=== PATIENT | female | born 1945 | race Caucasian/White ===

== ENCOUNTER 2020-01-14 16:14 | Inpatient (IN) | payer MEDICARE, OTHER ==
[~2020-01-14] VITALS: Ht 160 cm; Wt 91.0 kg
[~2020-01-14 16:14] MED LIST: ASPI81TA45 PO; ESTR42.53 VG; IBUP-1902 PO; LATA2.5D3 EACHEYE; LISI1TAB19 PO; METH500T97 PO; OMEP40CA42 PO; PENT100C2 PO; PRAV10TA2 PO; RANI150C PO; TRAZ50TA66 PO
[2020-01-14 17:26] LABS: ALBUMIN 2.8 g/dL (3.4-5.0); ANION GAP 9 mmol/L (5-15); CALCIUM 9.3 mg/dL (8.5-10.1); CHLORIDE 105 mmol/L (98-107); CREATININE 1.11 mg/dL (0.55-1.02)
--- NOTE | 2020-01-14 17:49 | NUR ---
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
[2020-01-14 17:55] LABS: BASOPHILS # (AUTO) 0.03 x10^3/uL (0-0.1); BASOPHILS % (AUTO) 0 % (0-1); EOSINOPHILS % (AUTO) 1 % (1-7); LYMPHOCYTES # (AUTO) 2.32 x10^3/uL (1-3.4); LYMPHOCYTES % (AUTO) 17 % (22-44); MD NO; MEAN CORPUSCULAR HEMOGLOBIN 31.3 pg (27.0-34.8); MEAN CORPUSCULAR HGB CONC 33.4 g/dL (32.4-35.8); MEAN CORPUSCULAR VOLUME 93.6 fL (80-100); MEAN PLATELET VOLUME 7.6 fL (7.4-10.4); MONOCYTES # (AUTO) 0.51 x10^3/uL (0.2-0.8); MONOCYTES % (AUTO) 4 % (2-9); NEUTROPHILS # (AUTO) 10.45 x10^3/uL (1.8-6.8); NEUTROPHILS % (AUTO) 78 % (42-75); PLATELET COUNT 408 x10^3/uL (130-400); RED BLOOD COUNT 4.31 x10^6/uL (3.82-5.3); RED CELL DISTRIBUTION WIDTH 14.9 % (9.6-15.2)
[2020-01-14] MEDS ORDERED: SODIUM CHLORIDE 0.9% 1,000 ML IV ONE (17:59)
[2020-01-14] MEDS ORDERED: ONDANSETRON 2MG/ML, 2ML IVPush ONE (18:00)
[2020-01-14] MEDS ORDERED: VANCOMYCIN PER PHARMACY MC ONE (18:00)
[2020-01-14] MEDS ORDERED: SODIUM CHLORIDE FLUSH 10ML SYR IVF ONE (18:00)
[2020-01-14] MEDS ORDERED: MORPHINE SULFATE 4 MG/ML, 1ML IVPush PRN (18:00)
[2020-01-14] MEDS ORDERED: AMPICILLIN/SULBACTAM 3 GM in SODIUM CHLORIDE 0.9% 100 ML IV ONE (18:30)
[2020-01-14] MEDS ORDERED: VANCOMYCIN 1,700 MG in SODIUM CHLORIDE 0.9% 250 ML IV ONE (19:00)
[2020-01-14] MEDS ORDERED: MORPHINE SULFATE 4 MG/ML, 1ML ONE (19:06)
[2020-01-14] MEDS ORDERED: ONDANSETRON 2MG/ML, 2ML ONE (19:06)
[2020-01-14 19:11] LABS: HCT (SEDRATE) 40.3 % (34.6-47.8)
--- NOTE | 2020-01-14 19:22 | NUR ---
PT TO CT
[2020-01-14] MEDS ORDERED: OMNIPAQUE 350 MG/ML, 100ML BOTTLE ONE (19:40)
--- NOTE | 2020-01-14 19:48 | NUR ---
PT MEDICATED PER MAR
--- NOTE | 2020-01-14 20:06 | NUR ---
PROVIDED PT WITH WARM BLANKET PER HER REQUEST, DENIES FURTHER NEEDS
--- NOTE | 2020-01-14 20:22 | NUR ---
PT RESTING ON GURNEY, IV ABX INFUSING, MONITORS I PLCE, CALL LIGHT WITHIN REACH. ADMIT AT [facility]
--- NOTE | 2020-01-14 20:54 | NUR ---
CINDY CHAU INSERTED, 16 FR, CATH SECURED APPLIED, CLEAR YELLOW DRAINAGE OBSERVED. Addendum: 01/14/20 at 2055 by [place] CATH INSERTED PER ALISON MANCERA VERBAL ORDER
--- NOTE | 2020-01-14 20:58 | NUR ---
ATTEMPTED TO CALL REPORT, NOTIFIED THAT RN WILL CALL BACK FOR REPORT
[2020-01-14] MEDS ORDERED: VANCOMYCIN PER PHARMACY MC PRN (21:00)
[2020-01-14] MEDS ORDERED: ACETAMINOPHEN 325 MG TABLET PO PRN (21:00)
[2020-01-14] MEDS ORDERED: DOCUSATE 100 MG CAPSULE PO PRN (21:00)
[2020-01-14 21:45] VITALS: BP 124/66
[2020-01-14] MEDS: AMPICILLIN/SULBACTAM 1,500 MG in SODIUM CHLORIDE 0.9% 50 ML IV SCH (21:59)
[2020-01-14] MEDS: FAMOTIDINE 20 MG TABLET PO SCH (22:07)
[2020-01-14] MEDS ORDERED: PHARMACOKINETIC MONITORING MC PRN (22:30)
[2020-01-14] MEDS ORDERED: PHARMACOKINETIC CONSULTATION MC ONE (22:30)
[2020-01-15 01:06] VITALS: BP 131/75
[2020-01-15] MEDS: AMPICILLIN/SULBACTAM 1,500 MG in SODIUM CHLORIDE 0.9% 50 ML IV SCH ×5 (03:00→23:52)
[2020-01-15] MEDS: PANTOPRAZOLE 40MG TABLET PO SCH (05:24)
[2020-01-15 05:56] LABS: BASOPHILS # (AUTO) 0.05 x10^3/uL (0-0.1); BASOPHILS % (AUTO) 0 % (0-1); EOSINOPHILS % (AUTO) 2 % (1-7); LYMPHOCYTES # (AUTO) 2.35 x10^3/uL (1-3.4); LYMPHOCYTES % (AUTO) 21 % (22-44); MD NO; MEAN CORPUSCULAR HEMOGLOBIN 31.6 pg (27.0-34.8); MEAN CORPUSCULAR HGB CONC 33.7 g/dL (32.4-35.8); MEAN CORPUSCULAR VOLUME 93.8 fL (80-100); MEAN PLATELET VOLUME 7.3 fL (7.4-10.4); MONOCYTES # (AUTO) 0.65 x10^3/uL (0.2-0.8); MONOCYTES % (AUTO) 6 % (2-9); NEUTROPHILS # (AUTO) 8.22 x10^3/uL (1.8-6.8); NEUTROPHILS % (AUTO) 72 % (42-75); PLATELET COUNT 325 x10^3/uL (130-400); RED BLOOD COUNT 4.17 x10^6/uL (3.82-5.3); RED CELL DISTRIBUTION WIDTH 14.8 % (9.6-15.2)
[2020-01-15 06:03] LABS: ANION GAP 6 mmol/L (5-15); CALCIUM 9.1 mg/dL (8.5-10.1); CHLORIDE 107 mmol/L (98-107); CREATININE 0.88 mg/dL (0.55-1.02)
[2020-01-15] MEDS: HYDROCHLOROTHIAZIDE 12.5 MG CAPSULE PO SCH (07:15)
[2020-01-15] MEDS: FAMOTIDINE 20 MG TABLET PO SCH (07:16)
[2020-01-15] MEDS: LISINOPRIL 20 MG TABLET PO SCH (07:16)
[2020-01-15] MEDS: PENTOSAN POLYSULFATE SODIUM PO SCH ×2 (07:17→20:05)
[2020-01-15 07:41] VITALS: BP 129/80
[2020-01-15] MEDS: morphine SULFATE 10 MG/ML, 1ML IVPush PRN ×3 (08:55→16:12)
[2020-01-15] MEDS: VANCOMYCIN 1,700 MG in SODIUM CHLORIDE 0.9% 250 ML IV SCH (14:18)
[2020-01-15 14:36] VITALS: BP 107/67
[2020-01-15 18:42] VITALS: BP 131/83
[2020-01-15] MEDS: PRAVASTATIN 20 MG TABLET PO SCH (20:04)
[2020-01-15] MEDS: TRAZODONE 50MG TABLET PO SCH (20:04)
[2020-01-15] MEDS: LATANOPROST OPHTH 0.005%, 2.5ML EACHEYE SCH (20:07)
[2020-01-16 01:44] VITALS: BP 123/77
[2020-01-16] MEDS: AMPICILLIN/SULBACTAM 1,500 MG in SODIUM CHLORIDE 0.9% 50 ML IV SCH ×4 (05:39→23:33)
[2020-01-16] MEDS: PANTOPRAZOLE 40MG TABLET PO SCH (05:39)
[2020-01-16] MEDS: VANCOMYCIN 1,700 MG in SODIUM CHLORIDE 0.9% 250 ML IV SCH (06:32)
[2020-01-16] MEDS: PENTOSAN POLYSULFATE SODIUM PO SCH ×2 (09:00→20:04)
[2020-01-16 09:11] VITALS: BP 121/75
[2020-01-16] MEDS: LISINOPRIL 20 MG TABLET PO SCH (09:35)
[2020-01-16] MEDS: morphine SULFATE 10 MG/ML, 1ML IVPush PRN ×2 (09:35→18:31)
[2020-01-16] MEDS: HYDROCHLOROTHIAZIDE 12.5 MG CAPSULE PO SCH (09:35)
[2020-01-16] MEDS: FAMOTIDINE 20 MG TABLET PO SCH (09:35)
[2020-01-16 13:17] VITALS: BP 120/73
[2020-01-16 19:40] VITALS: BP 130/75
[2020-01-16] MEDS: TRAZODONE 50MG TABLET PO SCH (20:00)
[2020-01-16] MEDS: LATANOPROST OPHTH 0.005%, 2.5ML EACHEYE SCH (20:00)
[2020-01-16] MEDS: PRAVASTATIN 20 MG TABLET PO SCH (20:02)
[2020-01-17 00:55] LABS: BASOPHILS # (AUTO) 0.06 x10^3/uL (0-0.1); BASOPHILS % (AUTO) 1 % (0-1); EOSINOPHILS # (AUTO) 0.15 x10^3/uL (0-0.4); EOSINOPHILS % (AUTO) 1 % (1-7); LYMPHOCYTES # (AUTO) 2.41 x10^3/uL (1-3.4); LYMPHOCYTES % (AUTO) 21 % (22-44); MD NO; MEAN CORPUSCULAR HEMOGLOBIN 31.4 pg (27.0-34.8); MEAN CORPUSCULAR HGB CONC 34.1 g/dL (32.4-35.8); MEAN CORPUSCULAR VOLUME 92.2 fL (80-100); MEAN PLATELET VOLUME 7.6 fL (7.4-10.4); MONOCYTES # (AUTO) 0.68 x10^3/uL (0.2-0.8); MONOCYTES % (AUTO) 6 % (2-9); NEUTROPHILS % (AUTO) 71 % (42-75); PLATELET COUNT 354 x10^3/uL (130-400); RED BLOOD COUNT 3.92 x10^6/uL (3.82-5.3); RED CELL DISTRIBUTION WIDTH 14.1 % (9.6-15.2)
[2020-01-17 00:59] LABS: ALBUMIN 2.4 g/dL (3.4-5.0); ANION GAP 5 mmol/L (5-15); CALCIUM 8.6 mg/dL (8.5-10.1); CHLORIDE 107 mmol/L (98-107)
[2020-01-17 01:16] VITALS: BP 124/81
[2020-01-17] MEDS: VANCOMYCIN 1,700 MG in SODIUM CHLORIDE 0.9% 250 ML IV SCH ×2 (01:20→18:17)
[2020-01-17] MEDS: PANTOPRAZOLE 40MG TABLET PO SCH (05:51)
[2020-01-17] MEDS: AMPICILLIN/SULBACTAM 1,500 MG in SODIUM CHLORIDE 0.9% 50 ML IV SCH ×3 (05:52→17:02)
[2020-01-17 07:34] VITALS: BP 152/85
[2020-01-17] MEDS: PENTOSAN POLYSULFATE SODIUM PO SCH ×2 (08:53→20:40)
[2020-01-17] MEDS: morphine SULFATE 10 MG/ML, 1ML IVPush PRN ×2 (08:54→17:02)
[2020-01-17] MEDS: LISINOPRIL 20 MG TABLET PO SCH (08:54)
[2020-01-17] MEDS: HYDROCHLOROTHIAZIDE 12.5 MG CAPSULE PO SCH (08:55)
[2020-01-17] MEDS: FAMOTIDINE 20 MG TABLET PO SCH (08:55)
[2020-01-17 13:02] VITALS: BP 118/74
[2020-01-17 19:30] VITALS: BP 132/79
[2020-01-17] MEDS: TRAZODONE 50MG TABLET PO SCH (20:40)
[2020-01-17] MEDS: PRAVASTATIN 20 MG TABLET PO SCH (20:40)
[2020-01-17] MEDS: LATANOPROST OPHTH 0.005%, 2.5ML EACHEYE SCH (20:40)
[2020-01-18] MEDS: AMPICILLIN/SULBACTAM 1,500 MG in SODIUM CHLORIDE 0.9% 50 ML IV SCH ×3 (00:06→11:59)
[2020-01-18 00:51] VITALS: BP 137/83
[2020-01-18] MEDS: morphine SULFATE 10 MG/ML, 1ML IVPush PRN ×2 (01:11→13:17)
[2020-01-18] MEDS: PANTOPRAZOLE 40MG TABLET PO SCH (05:44)
[2020-01-18 07:18] VITALS: BP 146/85
[2020-01-18] MEDS: PENTOSAN POLYSULFATE SODIUM PO SCH ×2 (09:00→21:00)
[2020-01-18] MEDS: FAMOTIDINE 20 MG TABLET PO SCH (09:00)
[2020-01-18] MEDS: HYDROCHLOROTHIAZIDE 12.5 MG CAPSULE PO SCH (10:29)
[2020-01-18] MEDS: LISINOPRIL 20 MG TABLET PO SCH (10:33)
[2020-01-18 12:28] VITALS: BP 169/91
[2020-01-18] MEDS: VANCOMYCIN 1,700 MG in SODIUM CHLORIDE 0.9% 250 ML IV SCH (13:17)
[2020-01-18] MEDS: TETRACYCLINE HCL 250 MG CAPSULE PO SCH ×2 (14:21→21:14)
[2020-01-18] MEDS: ONDANSETRON ODT 4 MG PO PRN ×2 (16:05→21:12)
[2020-01-18 18:19] VITALS: BP 151/96
[2020-01-18] MEDS: PRAVASTATIN 20 MG TABLET PO SCH (21:13)
[2020-01-18] MEDS: TRAZODONE 50MG TABLET PO SCH (21:14)
[2020-01-18] MEDS: LATANOPROST OPHTH 0.005%, 2.5ML EACHEYE SCH (21:15)
[2020-01-19] MEDS: ONDANSETRON ODT 4 MG PO PRN (01:31)
[2020-01-19 01:59] VITALS: BP 148/84
[2020-01-19] MEDS ORDERED: PANTOPRAZOLE 40MG TABLET PO SCH (06:00)
[2020-01-19] MEDS: PANTOPRAZOLE 40MG TABLET PO SCH (07:43)
[2020-01-19 08:14] VITALS: BP 174/82
[2020-01-19] MEDS: HYDROCHLOROTHIAZIDE 12.5 MG CAPSULE PO SCH (08:50)
[2020-01-19] MEDS: PENTOSAN POLYSULFATE SODIUM PO SCH (08:50)
[2020-01-19] MEDS: LISINOPRIL 20 MG TABLET PO SCH (08:50)
[2020-01-19] MEDS: TETRACYCLINE HCL 250 MG CAPSULE PO SCH (09:00)
[2020-01-19] MEDS ORDERED: CIPR500T3 PO (11:19)
[2020-01-19] MEDS ORDERED: CIPR (11:19)
[2020-01-19] MEDS ORDERED: LINE600T15 PO (11:19)
== END 2020-01-19 14:00 | disposition home health service (06) | DRG 603 ==
LOC: ED 19:31 → EDIP 21:44 → 3N 21:48
PROVIDERS: ADMIT Family Medicine; ATTEND Internal Medicine Infectious Disease
DX: L03.116 Cellulitis of left lower limb (principal); N17.9 Acute kidney failure, unspecified; L03.317 Cellulitis of buttock; E78.5 Hyperlipidemia, unspecified; H40.9 Unspecified glaucoma; I10 Essential (primary) hypertension; K21.9 Gastro-esophageal reflux disease without esophagitis; R70.0 Elevated erythrocyte sedimentation rate; R79.82 Elevated C-reactive protein (CRP); D72.829 Elevated white blood cell count, unspecified
CPT/HCPCS: 36415; 72193; 80048; 80069; 80202; 82040; 83605; 83735; 84145; 85025; 85651; 86140; 87040; 87070; 87077; 87186; 87205; 96365; 96375; G0378; J0295; J2405; J3370; Q0162; Q9967; J2270; J7030; J7050

== ENCOUNTER 2020-06-22 09:53 | Emergency (ER) | payer MEDICARE, OTHER ==
[~2020-06-22] VITALS: Ht 160 cm; Wt 87.3 kg
[~2020-06-22 09:53] MED LIST changes: +CIPR; +CIPR500T3 PO; +LINE600T15 PO
[2020-06-22] MEDS ORDERED: FAMOTIDINE 20 MG/2 ML ONE (10:26)
[2020-06-22] MEDS ORDERED: MAALOX/HYOSCYAMINE/LIDOCAINE 45 ML BTL ONE (10:26)
[2020-06-22] MEDS ORDERED: ONDANSETRON 2MG/ML, 2ML ONE (10:26)
[2020-06-22] MEDS ORDERED: ONDANSETRON 2MG/ML, 2ML IVPush ONE (10:30)
[2020-06-22] MEDS ORDERED: MAALOX/HYOSCYAMINE/LIDOCAINE 45 ML BTL PO ONE (10:30)
[2020-06-22] MEDS ORDERED: SODIUM CHLORIDE FLUSH 10ML SYR IVF ONE (10:30)
[2020-06-22] MEDS ORDERED: FAMOTIDINE 20 MG/2 ML IV ONE (10:30)
[2020-06-22 10:49] VITALS: BP 148/71
--- NOTE | 2020-06-22 10:50 | NUR ---
EKG DONE AT BEDSIDE BY EMT.
--- NOTE | 2020-06-22 10:58 | NUR ---
PIV EST ON L HAND WITH NO COMPLAICATIONS. PT MEDICATED PER EMAR. PT TOLERATED WELL.
[2020-06-22 11:03] LABS: BASOPHILS # (AUTO) 0.02 x10^3/uL (0-0.1); BASOPHILS % (AUTO) 0 % (0-1); EOSINOPHILS # (AUTO) 0.08 x10^3/uL (0-0.4); EOSINOPHILS % (AUTO) 2 % (1-7); LYMPHOCYTES % (AUTO) 22 % (22-44); MD NO; MEAN CORPUSCULAR HEMOGLOBIN 29.3 pg (27.0-34.8); MEAN CORPUSCULAR HGB CONC 32.9 g/dL (32.4-35.8); MEAN PLATELET VOLUME 9.6 fL (7.4-10.4); MONOCYTES # (AUTO) 0.45 x10^3/uL (0.2-0.8); MONOCYTES % (AUTO) 8 % (2-9); NEUTROPHILS # (AUTO) 3.72 x10^3/uL (1.8-6.8); NEUTROPHILS % (AUTO) 68 % (42-75); PLATELET COUNT 229 x10^3/uL (130-400); RED BLOOD COUNT 4.27 x10^6/uL (3.82-5.3); RED CELL DISTRIBUTION WIDTH 13.8 % (9.6-15.2)
[2020-06-22 11:04] LABS: ANION GAP 11 mmol/L (5-15); CALCIUM 9.4 mg/dL (8.5-10.1); CHLORIDE 95 mmol/L (98-107)
[2020-06-22 11:07] LABS: ALANINE AMINOTRANSFERASE 29 U/L (12-78); ALKALINE PHOSPHATASE 94 U/L (45-117); BILIRUBIN,TOTAL 0.3 mg/dL (0.2-1.0); CREATININE 0.93 mg/dL (0.55-1.02); TOTAL PROTEIN 7.7 g/dL (6.4-8.2); TROPONIN I < 0.015 ng/mL (0.000-0.045)
--- NOTE | 2020-06-22 11:26 | NUR ---
pt amb to br and back to room with steady gait.
--- NOTE | 2020-06-22 11:47 | NUR ---
Patient given discharge instructions and they have confirmed that they understand the instructions. Patient ambulatory with steady gait.
== END 2020-06-22 11:49 | disposition home or self-care (01) ==
LOC: ED 11:45
DX: K29.00 Acute gastritis without bleeding (principal); R07.89 Other chest pain; E87.1 Hypo-osmolality and hyponatremia; R94.31 Abnormal electrocardiogram [ECG] [EKG]; I10 Essential (primary) hypertension; E78.5 Hyperlipidemia, unspecified; K21.9 Gastro-esophageal reflux disease without esophagitis; Z90.710 Acquired absence of both cervix and uterus
CPT/HCPCS: 36415; 71046; 80053; 83690; 84484; 85025; 93005; 96374; 96375; 99285; J2405; J3490